=== PATIENT | female | born 1975 | race Caucasian/White ===

== ENCOUNTER 2019-04-05 09:34 | Emergency (ER) | payer BC, OTHER ==
[2019-04-05 09:42] VITALS: BMI 33.0
[2019-04-05] MEDS ORDERED: ACETAMINOPHEN 1000 MG/100 ML VIAL (NON FORMULARY) IVPB ONE (10:17)
[2019-04-05] MEDS ORDERED: METOCLOPRAMIDE HCL INJECTION 10 MG/2 ML VIAL IVPUSH ONE (10:17)
[2019-04-05] MEDS ORDERED: SODIUM CHLORIDE 0.9% 500 ML INFUS.BAG IV ONE (10:17)
--- NOTE | 2019-04-05 10:25 | PDOC ---
History of Present Illness - General Chief Complaint: Headache Stated Complaint: LT. ARM NUMBING Time Seen by Provider: 04/05/19 09:55 - History of Present Illness Initial Comments: Harshal Delatorre is an otherwise healthy 44yo woman who presents with generalized malaise, headache, nausea, and tingling on her left body after a recent illness with diarrhea. She states that she was seen in the ED at [facility] yesterday and diagnosed with gastroenteritis. Her diarrhea resolved after being seen in the ED, and she was able to tolerate a small amount of liquid and mashed potatoes yesterday. She reports that she developed a headache in the evening yesterday and took acetaminophen. She was able to sleep throughout the night but noted a headache again when she woke up today. She additionally reports feeling flushed, nauseated and slightly lightheaded when she stood up out of bed. Ms Delatorre was concerned that the symptoms were a sign of serious illness and presented to the ED. Currently, she reports continued dull occipital headache and slight tingling along her entire left body. She no longer has any nausea, lightheadedness, sensation of being flushed, or diarrhea. Past History - Past Medical History Allergies/Adverse Reactions: Allergies Allergy/AdvReac Type Severity Reaction Status Date / Time No Known Allergies Allergy Verified 04/05/19 09:42 Home Medications: Ambulatory Orders Sumatriptan Succinate [Imitrex -] 50 mg PO ASDIR 04/05/19 COPD: No - Immunization History Td Vaccination: No Immunization Up to Date: Yes - Psycho Social/Smoking Cessation Hx Smoking Status: No Smoking History: Never smoked Years of Tobacco Use: 0 Number of Cigarettes Smoked Daily: 0 Cigars Per Day: 0 Hx Alcohol Use: No Drug/Substance Use Hx: No Review of Systems - Review of Systems Comments:: General: No fevers, + chills, no weight or appetite change, + malaise HEENT: No changes in vision, no changes in hearing, no congestion, no sore throat CV: No chest pain, no palpitations, no LE edema Pulm: No SOB, no cough, no wheezing GI: No nausea or vomiting, +diarrhea (resolved), no melena : No frequency, no urgency, no dysuria Musc: No back pain, no joint swelling, no recent injury Skin: No rash, no lesions, no erythema Endo: No excessive thirst, no heat/cold intolerance Heme: No unusual bruising or bleeding, no swollen glands Neuro: No syncope, no numbness/tingling, no focal weakness, +dizzy Vasc: No claudication Psych: No recent change in mood, no SI or HI *Physical Exam - Vital Signs Last Vital Signs Temp Pulse Resp BP Pulse Ox 98.0 F 62 14 121/67 96 04/05/19 09:39 04/05/19 09:39 04/05/19 09:39 04/05/19 09:39 04/05/19 09:39 - Physical Exam Comments: General: Comfortable, no acute distress HEENT: Atraumatic, PERRL, EOMI, MMM, voice normal, normal neck ROM Cards: RRR, no murmur appreciated Pulm: Comfortable on room air, clear to auscultation bilaterally Abd: Soft, slight TTP in epigastrium, nondistended Ext: Atraumatic. No LE edema. ROM intact. WWP Skin: Normal color, no rashes or lesions Neuro: A&Ox3, CN grossly intact, normal speech, motor/sensory grossly intact and symmetric, no focal deficits Psych: Mood appropriate to situation ED Treatment Course - LABORATORY CBC & Chemistry Diagram: 04/05/19 10:40 04/05/19 10:40 Medical Decision Making - Medical Decision Making 04/05/19 10:18 Harshal Delatorre is an otherwise healthy 44yo woman who presents with generalized malaise, headache, nausea, and tingling on her left body after a recent illness with diarrhea. - Symptoms most likely due to viral illness, dehydration, electrolyte abnormalities secondary to diarrhea, migraine - CBC, CMP - IVF bolus, reglan, IV acetaminophen for symptoms - No focal neurological deficits suggesting an underlying neuro pathology 04/05/19 12:08 - Labs unremarkable - Pt feels significantly improved. - Will ensure that pt is able to ambulate without dizziness. Plan to d/c home if no longer symptomatic - Will arrange follow up with [facility] 04/05/19 12:42 - Ambulated without difficulty - D/c home to follow up with PMD - Discussed home care and return precautions at length. Discussed with Dr Rickey Min PGY2 Discharge - Discharge Information Problems reviewed: Yes Clinical Impression/Diagnosis: Malaise Headache Qualifiers: Headache type: unspecified Headache chronicity pattern: acute headache Intractability: not intractable Qualified Code(s): R51 - Headache Condition: Stable Disposition: HOME - Admission No - Follow up/Referral Referrals: [facility] [[place] Group] - Patient Discharge Instructions Patient Printed Discharge Instructions: DI for Dehydration -- Adult Additional Instructions: Discharge Instructions: You were seen in the emergency department for a headache and general malaise after a recent illness with diarrhea. Your symptoms may be due to mild dehydration. Your blood tests did not show any concerning results. Home Care: - Make sure you are drinking plenty of fluids to stay hydrated. Water, soup, tea , sports drinks, or Pedialyte are great options. Avoid drinks with a lot of sugar as these can cause diarrhea. - You may want to avoid spicy foods, dairy products, greasy/oily foods, caffeine or alcohol until you are feeling better - Make an appointment to establish care with a primary care doctor within 1-2 weeks - Seek immediate care for worsening symptoms, inability to stay hydrated, persistent dizziness, inability to eat/drink or any other medical emergency. - Post Discharge Activity
[2019-04-05] MEDS ORDERED: METOCLOPRAMIDE HCL INJECTION 10 MG/2 ML VIAL ONE (10:26)
[2019-04-05] MEDS ORDERED: ACETAMINOPHEN INJECTION 100 ML IVPB ONE (10:26)
--- NOTE | 2019-04-05 10:40 | PDOC ---
Attending Attestation - Resident Resident Name: Niesha Min - ED Attending Attestation I have performed the following: I have examined & evaluated the patient, The case was reviewed & discussed with the resident, I agree w/resident's findings & plan, Exceptions are as noted - HPI HPI: 04/05/19 11:07 Ms. Delatorre is a 44-year-old female who is otherwise healthy who presents emergency department with a complaint of weakness, diarrhea, tingling of the left side. Patient's symptoms began initially with diarrhea 3 days ago, nonbloody, nonmucoid. Patient is unable to estimate the number time she has had diarrhea. She has associated intermittent abdominal crampy pain, rated 7/ 10. She reports nausea, denies vomiting. She denies fevers or chills She states that 2 days ago she felt profoundly weak, was unable to get out of bed She was seen in the emergency department yesterday at an outside facility Patient states they did no testing of her, diagnosed her with gastroenteritis, and discharged her home Patient presents today because although she had planned to go to work today, she felt too weak to do so She notes tingling of her entire left side as well as an occipital headache Denies recent travel Denies undercooked meats, uncooked shellfish, hiking She denies ill contacts No one else at home has similar symptoms - Physicial Exam PE: 04/05/19 10:33 GENERAL: The patient is in no acute distress. ENT: Ears normal, nares patent, oropharynx clear without exudates. Moist mucous membranes. NECK: Normal range of motion, supple, no nuchal rigidity LUNGS: Breath sounds equal, clear to auscultation bilaterally. No wheezes, and no crackles. HEART:Regular rate and rhythm, normal S1 and S2 without murmur, rub or gallop. ABDOMEN: Soft, nontender, nondistended EXTREMITIES: Normal range of motion, no edema. NEUROLOGICAL: Cranial nerves II through XII grossly intact. Normal speech. No focal neurological deficits. Sensation is intact motor is 5/5 in all extremities SKIN: Warm, Dry, normal turgor, no rashes or lesions noted. 04/05/19 11:13 - Medical Decision Making 04/05/19 11:13 44-year-old female presenting to the emergency department with a complaint of weakness, diarrhea, paresthesias of the left side Patient denies systemic signs of illness Differential diagnosis includes: Infectious diarrhea, dehydration, I doubt this is a primary neurological condition (CVA, Mass) given symptoms began after patient had a viral syndrome 04/05/19 11:17 Laboratory Tests 04/05/19 10:40 WBC 3.2 L Hgb 10.4 L Hct 33.1 Plt Count 269 04/05/19 12:07 Laboratory Tests 04/05/19 10:40 BUN 16.0 Creatinine 0.6 Would consider stool studies however patient has no more diarrhea No indication emergent for CT head given no focal neurological deficit Pt has had no diarrhea (no stool studies could be sent) Will plan to discharge to home
[2019-04-05 11:11] LABS: BASO % 0.9 % (0-2.0); EOS % 3.5 % (0-4.5); HEMATOCRIT 33.1 % (32.4-45.2); HEMOGLOBIN 10.4 GM/dL (10.7-15.3); LYMPH % 40.3 % (8-40); MCH 24.1 pg (25.7-33.7); MCHC 31.5 g/dl (32.0-36.0); MEAN CELL VOLUME 76.4 fl (80-96); MONO % 13.3 % (3.8-10.2); PLATELET COUNT 269 K/MM3 (134-434); RBC 4.34 M/mm3 (3.60-5.2); RDW 15.4 % (11.6-15.6); WHITE BLOOD COUNT 3.2 K/mm3 (4.0-10.0)
[2019-04-05 11:40] LABS: ALBUMIN 3.4 g/dl (3.4-5.0); BILIRUBIN,TOTAL 0.2 mg/dL (0.2-1); CALCIUM 8.6 mg/dL (8.5-10.1); CREATININE 0.6 mg/dL (0.55-1.3); POTASSIUM 3.6 mmol/L (3.5-5.1); TOT PROT 6.6 g/dl (6.4-8.2)
[2019-04-05 13:09] VITALS: BP 129/73; PULSE 94; TEMP 97.5
== END 2019-04-05 13:10 | disposition home or self-care (01) ==
LOC: JER 09:34
PROC: 3E033NZ Introduction of Analgesics, Hypnotics, Sedatives into Peripheral Vein, Percutaneous Approach (ICD-10-PCS; principal; 2019-04-05)
PROC: 3E033GC Introduction of Other Therapeutic Substance into Peripheral Vein, Percutaneous Approach (ICD-10-PCS; 2019-04-05)
DX: R51 Headache (principal); R53.81 Other malaise; Z87.19 Personal history of other diseases of the digestive system
CPT/HCPCS: 36415; 80053; 83735; 85025; 99285-25; J0131

== ENCOUNTER 2022-08-03 16:19 | Emergency (ER) | payer BC, OTHER ==
[2022-08-03 16:31] VITALS: BP 158/98; PULSE 100; RESP 18; TEMP 98.7; BMI 35.7
== END 2022-08-03 16:56 | disposition home or self-care (01) ==
LOC: FER 16:19
DX: J20.9 Acute bronchitis, unspecified (principal)
CPT/HCPCS: 71046-TC-FY; 99283-25

== ENCOUNTER 2023-01-12 19:40 | Emergency (ER) | payer BC, OTHER ==
[2023-01-12 19:53] VITALS: BP 125/82; PULSE 80; RESP 16; TEMP 98.5; BMI 34.9
[2023-01-12 20:14] LABS: HEMATOCRIT 34.3 % (32.4-45.2); MCH 24.2 pg (25.7-33.7); MCHC 32.1 g/dl (32.0-36.0); MEAN CELL VOLUME 75.2 fl (80-96); MEAN PLT VOLUME 7.5 fl (7.5-11.1); PLATELET COUNT 283.5 10^3/uL (134-434); RBC 4.56 10^6/uL (3.60-5.2); RDW 18.1 % (11.6-15.6); WHITE BLOOD COUNT 3.3 10^3/uL (4.0-10.8)
[2023-01-12 20:27] LABS: BLOOD UREA NITROGEN 12.5 mg/dl (7-18); CALCIUM 8.9 mg/dl (8.5-10.1); CREATININE 0.7 mg/dl (0.6-1.3); POTASSIUM 3.7 mmol/L (3.5-5.1); SGOT/AST 15.3 U/L (15-37); SGPT/ALT 12.6 U/L (7-52); TOT PROT 6.5 g/dl (6.4-8.2)
[2023-01-12] MEDS ORDERED: KETOROLAC TROMETHAMINE 30 MG/1 ML VIAL ONE (20:28)
[2023-01-12] MEDS ORDERED: KETOROLAC TROMETHAMINE 30 MG/1 ML VIAL IVPUSH ONE (20:33)
[2023-01-12 22:22] LABS: BILIRUBIN,TOTAL 0.2 mg/dL (0.2-1)
== END 2023-01-12 20:42 | disposition home or self-care (01) ==
LOC: FER 19:40
PROC: 3E0333Z Introduction of Anti-inflammatory into Peripheral Vein, Percutaneous Approach (ICD-10-PCS; principal; 2023-01-12)
DX: K92.1 Melena (principal); R19.7 Diarrhea, unspecified
CPT/HCPCS: 36415; 80053; 85027; 99284-25

== ENCOUNTER 2023-02-28 18:43 | Emergency (ER) | payer BC, OTHER ==
[2023-02-28 18:55] VITALS: BP 135/85; PULSE 87; RESP 18; TEMP 98.1; BMI 33.6
[2023-02-28] MEDS ORDERED: predniSONE 20 MG TABLET (UD) ONE (20:08)
[2023-02-28] MEDS ORDERED: predniSONE 20 MG TABLET (UD) PO ONE (20:08)
== END 2023-02-28 20:56 | disposition home or self-care (01) ==
LOC: FER 18:43
DX: R05.1 Acute cough (principal)
CPT/HCPCS: 71046-TC-FY; 99283-25